=== PATIENT | male | born 1955 | race Caucasian/White ===

== ENCOUNTER 2023-04-24 05:28 | Day surgery (SDC) | payer MEDICARE, OTHER ==
[2023-04-18 14:41] LABS: BASOPHILS # (AUTO) 0.1 X10'3 (0-0.2); BASOPHILS % (AUTO) 0.7 % (0-1); EOSINOPHILS # (AUTO) 0.2 X10'3 (0-0.9); EOSINOPHILS % (AUTO) 1.7 % (0-6); LYMPHOCYTES # (AUTO) 2.4 X10'3 (1.1-4.8); LYMPHOCYTES % (AUTO) 26.8 % (21-51); MEAN CORPUSCULAR HEMOGLOBIN 30.7 PG (27.0-31.0); MEAN CORPUSCULAR HGB CONC 34.3 g/dL (33.0-36.5); MEAN CORPUSCULAR VOLUME 89.5 FL (78-98); MEAN PLATELET VOLUME 7.6 FL (7.4-10.4); MONOCYTES # (AUTO) 0.8 X10'3 (0-0.9); MONOCYTES % (AUTO) 8.4 % (2-12); NEUTROPHILS # (AUTO) 5.7 X10'3 (1.8-7.7); NEUTROPHILS % (AUTO) 62.4 % (42-75); PRE OP HEMATOCRIT 45.3 % (42.0-52.0); PRE OP HEMOGLOBIN 15.5 g/dL (14.0-17.9); PRE OP PLATELET COUNT 184 X10'3 (140-440); PRE OP WHITE BLOOD COUNT 9.1 10'3 (4.8-10.8); RED BLOOD COUNT 5.06 X10'6 (4.70-6.10); RED CELL DISTRIBUTION WIDTH 13.5 % (11.5-14.5)
[2023-04-18 14:58] LABS: ALBUMIN 3.5 G/DL (3.4-5.0); ALBUMIN/GLOBULIN RATIO 0.9 (1.1-1.5); ALKALINE PHOSPHATASE 74 IU/L (46-116); BLOOD UREA NITROGEN 13 MG/DL (7-18); BUN/CREATININE RATIO 15.5 (10.0-20.0); CALCIUM 9.9 MG/DL (8.5-10.1); CHLORIDE 106 MMOL/L (99-107); CREATININE 0.84 MG/DL (0.60-1.10); PRE OP ALT 19 U/L (30-65); PRE OP ANION GAP 10 (8-16); PRE OP AST 21 U/L (10-37); PRE OP BILIRUB, TOTAL 0.5 MG/DL (0.0-1.0); PRE OP GLUCOSE 79 MG/DL (70-104); PRE OP SODIUM 142 MMOL/L (135-145); TOTAL CARBON DIOXIDE 26.5 MMOL/L (24-32); TOTAL PROTEIN 7.2 G/DL (6.4-8.2); eGFR > 90 ML/MIN
[2023-04-24] VITALS (17 sets, daily range): BP systolic 126–143; BP diastolic 65–92; PULSE 51–72; RESP 12–19; TEMP 97.2; O2SAT 93–100
[~2023-04-24] VITALS: Ht 177.8 cm; Wt 109.8 kg
[~2023-04-24 05:28] MED LIST: FLO0.4C PO
[2023-04-24] MEDS ORDERED: ringers solution, lacted 1,000 ML IV SCH ×2 (05:30→08:25)
[2023-04-24] MEDS ORDERED: famotidine 20mg tablet PO ONE (05:30)
[2023-04-24] MEDS ORDERED: cefazolin 2gm/D5W 100mL 100 ML IV ONE (05:30)
[2023-04-24] MEDS ORDERED: tamsulosin 0.4mg capsule PO ONE (06:24)
[2023-04-24] MEDS ORDERED: LIDOcaine 1% (10mg/ml)w/preservative inj. 20ml MDV ONE (06:41)
[2023-04-24] MEDS ORDERED: BUPIVAcaine 2.5mg/ml inj 50ml vial (contains preservative) ONE (06:41)
[2023-04-24] MEDS ORDERED: neostigmine methylsulfate 1 MG/ML 10ml vial ONE (07:28)
[2023-04-24] MEDS ORDERED: glycopyrrolate 0.2mg/ml inj ONE (07:28)
[2023-04-24] MEDS ORDERED: sevoflurane 250ml liquid IH ONE (07:28)
[2023-04-24] MEDS ORDERED: desflurane 240ml liquid inh. IH ONE (07:28)
[2023-04-24] MEDS ORDERED: midazolam 1 mg/ML 2ml injection ONE (07:36)
[2023-04-24] MEDS ORDERED: fentaNYL /PF 50mcg/ml 5ml ampule ONE (07:36)
[2023-04-24] MEDS ORDERED: dexamethasone sod phosphate 4mg/ml inj. ONE (07:49)
[2023-04-24] MEDS ORDERED: rocuronium 10mg/ml inj IV ONE (07:49)
[2023-04-24] MEDS ORDERED: propofol inj 20 ML IV ONE (07:49)
[2023-04-24] MEDS ORDERED: LIDOcaine 2% (20mg/ml) 5ml vial ONE (07:49)
[2023-04-24] MEDS ORDERED: ondansetron/PF 4mg/2ml inj ONE (07:50)
[2023-04-24] MEDS ORDERED: labetalol 20mg/4ml (5mg/ml) syringe IV PRN (08:25)
[2023-04-24] MEDS ORDERED: meperidine/PF 25mg/ml syringe IV PRN ×3 (08:25)
[2023-04-24] MEDS ORDERED: enalaprilat dihydrate 2.5mg/2ml vial IV PRN (08:25)
[2023-04-24] MEDS ORDERED: morphine 2 MG/ML inj. syringe IV PRN (08:25)
[2023-04-24] MEDS ORDERED: ondansetron/PF 4mg/2ml inj IV PRN (08:25)
[2023-04-24] MEDS ORDERED: morphine 4 MG/ML inj SYRINge IV PRN (08:25)
[2023-04-24] MEDS ORDERED: proCHLORperazine 10 MG/2 ml inj IV PRN (08:25)
[2023-04-24] MEDS ORDERED: LIDOCAINE HCL 10 MG/ML 1% MDV 50ml injection SQ ONE (08:30)
[2023-04-24] MEDS ORDERED: ketorolac trometh. 30mg/ml inj. ONE (09:03)
[2023-04-24] MEDS ORDERED: HYDROcodone/acetaminophen 5mg/325mg tablet PO PRN (09:15)
[2023-04-24] MEDS ORDERED: LidoCAINE 2% Topical Jelly 11mL syringe MM ONE (12:40)
[2023-04-24] MEDS ORDERED: LIDOcaine 2% 10ml TOPICAL JELLY (Urojet) MM ONE (12:40)
[2023-04-24] MEDS ORDERED: LidoCAINE 2% Topical Jelly 11mL syringe ONE (12:49)
== END 2023-04-24 13:24 | disposition home or self-care (01) ==
LOC: PAS 05:28 → EDSEX 07:30 → PAS 13:24
PROVIDERS: ATTEND Surgery
DX: K40.90 Unilateral inguinal hernia, without obstruction or gangrene, not specified as recurrent (principal); K42.9 Umbilical hernia without obstruction or gangrene; D17.5 Benign lipomatous neoplasm of intra-abdominal organs; R00.1 Bradycardia, unspecified; I10 Essential (primary) hypertension; E66.01 Morbid (severe) obesity due to excess calories; E78.5 Hyperlipidemia, unspecified; G47.33 Obstructive sleep apnea (adult) (pediatric); N40.0 Benign prostatic hyperplasia without lower urinary tract symptoms; I25.2 Old myocardial infarction; I20.0 Unstable angina; Z86.73 Personal history of transient ischemic attack (TIA), and cerebral infarction without residual deficits; Z79.899 Other long term (current) drug therapy; Z98.890 Other specified postprocedural states; Z68.34 Body mass index [BMI] 34.0-34.9, adult; Z82.49 Family history of ischemic heart disease and other diseases of the circulatory system; Z83.3 Family history of diabetes mellitus; Z80.9 Family history of malignant neoplasm, unspecified
CPT/HCPCS: 36415; 49591; 49650; 80053; 82948; 85025; 93005; C1781; J0690; J1100; J1885; J2250; J2405; J2704; J2710; J3010; J3490; J7030; J7120; Z7506; Z7508; Z7512; A4215; A4314; A4618